=== PATIENT | male | born 1960 | race Caucasian/White ===

== ENCOUNTER 2021-08-14 00:38 | Day surgery (SDC) | payer OTHER, SELFPAY ==
[2021-07-31 14:12] VITALS: BMI 23.5
--- NOTE | 2021-08-11 13:34 | WPDGICN ---
Assessment and Plan Assessment and plan (1) Colon cancer screening: Code(s): Z12.11 - Encounter for screening for malignant neoplasm of colon Status: Acute Assessment and Plan: Colonoscopy with possible biopsy or polypectomy or cautery or injection of substances. GI Consult Note Consult date/time: 08/11/21 13:34 HPI: Robert Villeda is a 61 year old male referred for colon cancer screening. He has never had a colonoscopy Review of Systems Review of Systems: All systems reviewed & are unremarkable except as noted in HPI and below PMFSH Past Medical History Medical History (Updated 08/14/21 @ 07:47 by Jaydon Leo MD) HTN (hypertension) Hyperlipidemia Melanoma Social History Social History Smoking status: Former smoker Tobacco type: cigarettes Alcohol intake: current Drinks per week: 20 Living arrangements: with family Spiritual care concerns: No Meds Home Medications and Allergies Home Medications Medication Instructions Recorded Confirmed Type ascorbic acid (vitamin C) 250 mg PO DAILY 07/31/21 08/14/21 History lisinopril 10 mg PO DAILY 07/31/21 07/31/21 History [id number]-ulp-ywpxk-vit K-lycop 1 tablet PO DAILY 07/31/21 07/31/21 History [Men's One Daily] omega-3 fatty acids [Fish Oil] 1,000 mg PO DAILY 07/31/21 07/31/21 History simvastatin 10 mg PO DAILY 07/31/21 07/31/21 History Allergies Allergy/AdvReac Type Severity Reaction Status Date / Time No Known Allergies Allergy Verified 08/14/21 07:30 Exam Const: General: alert Orientation/consciousness: patient oriented x3 Resp: Auscultation: clear to auscultation bilaterally Cardio: Rhythm: regular rhythm GI: GI Palp: Yes Soft to palpation and No Tenderness to palpation present (GI) Neuro: General: patient oriented x3
[2021-08-14 07:32] VITALS: BP 155/84; PULSE 53; RESP 18; TEMP 36.2; O2SAT 99
[2021-08-14] MEDS: LACTATED RINGERS 1,000 ML 150 ML IV CONT (07:39)
--- NOTE | 2021-08-14 07:46 | WPDANESEPPF ---
Anes - Initial Pre Proc Eval Procedure: Operation Date: 08/14/21 08:30 Proposed Procedures p Screening Colonoscopy - Nolan Swain MD Date/Time: 08/14/21 07:46 Surgeon: Nolan Swain MD Pre Op Diagnosis: neoplasm screening Patient Data Age: 61 Gender: M Height: 1.88 m Weight: 82.3 kg Last Vital Signs Temp 36.2 C L 08/14/21 07:32 Pulse 53 L 08/14/21 07:32 Resp 18 08/14/21 07:32 BP 155/84 H 08/14/21 07:32 Pulse Ox 99 08/14/21 07:32 Allergies Allergy/AdvReac Type Severity Reaction Status Date / Time No Known Allergies Allergy Verified 08/14/21 07:30 Home Medications Medication Instructions Recorded Confirmed Type ascorbic acid (vitamin C) 250 mg PO DAILY 07/31/21 08/14/21 History lisinopril 10 mg PO DAILY 07/31/21 07/31/21 History [id number]-onm-yzrdr-vit K-lycop 1 tablet PO DAILY 07/31/21 07/31/21 History [Men's One Daily] omega-3 fatty acids [Fish Oil] 1,000 mg PO DAILY 07/31/21 07/31/21 History simvastatin 10 mg PO DAILY 07/31/21 07/31/21 History Patient hx anesthesia problems: none Family hx anesthesia problems: none Results Review: All pre-operative results and documents have been reviewed as part of the pre-operative evaluation. [facility] Past Medical History Medical History (Updated 08/14/21 @ 07:47 by Jaydon Leo MD) HTN (hypertension) Hyperlipidemia Melanoma Social History Social History Smoking status: Former smoker Tobacco type: cigarettes Alcohol intake: current Drinks per week: 20 Living arrangements: with family Spiritual care concerns: No Anes - Eval Final PreProcedure Day of Procedure 08/14/21 07:46 Patient weight: normal Heart: regular rate and rhythm Lungs: clear to auscultation Airway: Mallampati scale class II Neurological: alert and oriented Last oral intake: >/= 8 hours ASA classification: II Emergent: no Anesthetic plan: proceed Anesthesia type and monitoring: general GIVS and standard monitoring Results Review: All pre-operative results and documents have been reviewed as part of the pre-operative evaluation. Informed Consent: The patient's anesthetic plan and its attendant risks and benefits were discussed with the patient/family/POA. Questions were solicited and answers provided to the satisfaction of the patient/family/POA.
[2021-08-14 08:42] VITALS: BP 111/70; PULSE 50; RESP 15; O2SAT 100
[2021-08-14 08:52] VITALS: BP 134/89; PULSE 56; RESP 15; O2SAT 97
[2021-08-14 09:02] VITALS: BP 135/88; PULSE 50; RESP 14; O2SAT 97
== END 2021-08-14 09:11 | disposition home or self-care (01) ==
PROVIDERS: Visit Provider Internal Medicine Gastroenterology
PROC: 0DJD8ZZ Inspection of Lower Intestinal Tract, Via Natural or Artificial Opening Endoscopic (ICD-10-PCS; CPT 45378; principal; 2021-08-14 08:30)
DX: Z12.11 Encounter for screening for malignant neoplasm of colon (principal); K57.30 Diverticulosis of large intestine without perforation or abscess without bleeding; I10 Essential (primary) hypertension; E78.5 Hyperlipidemia, unspecified; Z85.820 Personal history of malignant melanoma of skin; Z87.891 Personal history of nicotine dependence
CPT/HCPCS: 45378; J2704; J7120